=== PATIENT | male | born 1930 | race Caucasian/White ===

== ENCOUNTER 2018-03-19 22:28 | Inpatient (IN) | payer OTHER ==
[~2018-03-19] VITALS: Ht 175.3 cm; Wt 70.0 kg
[~2018-03-19 22:28] MED LIST: DICL75TA2 PO; TRIBENZOR
[2018-03-19] MEDS ORDERED: SODIUM CHLORIDE 0.9% 1L BAG IV* STA (23:47)
[2018-03-20] MEDS ORDERED: CEFEPIME 2GM/50 ML (PMX) 50 ML IVPB STA (01:21)
[2018-03-20] MEDS ORDERED: VANCOMYCIN 1 GM (PMX) 250 ML IVPB ONE (01:30)
--- NOTE | 2018-03-20 03:31 | ERD ---
ER Documentation Chief Complaint Chief Complaint DIARRHEA X'S 1 DAY, HYPOTENSIVE HPI This is an 87-year-old male comes in with diarrhea for the past day. Is a 5-6 episodes of diarrhea watery. 2-3 episodes of nonbilious vomiting as well. Complains of fever and body aches as well previously. Upon arrival to the ER he said fever and body aches have resolved but he just wanted to be checked out. He did see his primary care physician today and told that he had a viral syndrome. No sick contacts. No other current complaints. ROS All systems reviewed and are negative except as per history of present illness. Medications Home Meds Reported Medications Levothyroxine Sodium* (Levothyroxine Sodium*) 25 Mcg Tablet, 25 MCG PO BEFORE BREAKFAST, #30 TAB 03/20/18 Diclofenac Sodium* (Diclofenac Sodium*) 75 Mg Tablet.dr, 75 MG PO BID, #60 TAB 03/20/18 Tamsulosin Hcl* (Tamsulosin Hcl*) 0.4 Mg Cap.er.24h, 0.4 MG PO HS, CAP 03/20/18 Amlodipine Besylate* (Amlodipine Besylate*) 10 Mg Tablet, 10 MG PO DAILY, #30 TAB 03/20/18 Allergies Allergies: Coded Allergies: No Known Allergy (Unverified , 03/20/18) Physical Exam Vitals Vital Signs Date Temp Pulse Resp B/P (MAP) Pulse Ox O2 O2 Flow FiO2 Time Delivery Rate 03/20/18 98 16 107/55 99 Room Air 02:22 (72) 03/20/18 97.7 91 22 125/91 97 Room Air 00:36 (102) 03/19/18 97.5 104 18 85/53 (64) 93 23:07 Physical Exam Const: No acute distress Head: Atraumatic Eyes: Normal Conjunctiva ENT: Normal External Ears, Nose and Mouth. Neck: Full range of motion. No meningismus. Resp: Clear to auscultation bilaterally Cardio: Regular rate and rhythm, no murmurs Abd: Soft, non tender, non distended. Normal bowel sounds Skin: No petechiae or rashes Back: No midline or flank tenderness Ext: No cyanosis, or edema Neur: Awake and alert Psych: Normal Mood and Affect Result Diagram: 03/19/18 0000 03/19/18 0000 Results 24 hrs Laboratory Tests Test 03/19/18 00:00 03/20/18 00:17 White Blood Count 15.4 10^3/ul Red Blood Count 4.34 10^6/ul Hemoglobin 12.9 g/dl Hematocrit 40.3 % Mean Corpuscular Volume 92.9 fl Mean Corpuscular Hemoglobin 29.7 pg Mean Corpuscular Hemoglobin Concent 32.0 g/dl Red Cell Distribution Width 13.2 % Platelet Count 327 10^3/UL Mean Platelet Volume 9.3 fl Immature Granulocytes % 0.500 % Neutrophils % 81.5 % Lymphocytes % 6.4 % Monocytes % 10.4 % Eosinophils % 1.0 % Basophils % 0.2 % Nucleated Red Blood Cells % 0.0 /100WBC Immature Granulocytes # 0.070 10^3/ul Neutrophils # 12.6 10^3/ul Lymphocytes # 1.0 10^3/ul Monocytes # 1.6 10^3/ul Eosinophils # 0.2 10^3/ul Basophils # 0.0 10^3/ul Nucleated Red Blood Cells # 0.0 10^3/ul Prothrombin Time 13.2 Sec Prothrombin Time Ratio 1.0 INR International Normalized Ratio 0.99 Activated Partial Thromboplast Time 27.1 Sec Sodium Level 144 mmol/L Potassium Level 4.1 mmol/L Chloride Level 108 mmol/L Carbon Dioxide Level 17 mmol/L Anion Gap 19 Blood Urea Nitrogen 26 mg/dl Creatinine 2.00 mg/dl Est Glomerular Filtrat Rate mL/min mL/min Glucose Level 183 mg/dl Calcium Level 8.8 mg/dl Troponin I < 0.012 ng/ml POC Venous Lactate 2.1 mmol/L Current Medications Medications Dose Sig/Tabatha Start Time Status Last (Trade) Ordered Route PRN Stop Time Admin Dose Reason Admin Sodium 2,050 ml BOLUS OVER 2 03/19/18 DC 03/20/18 Chloride HOURS STAT 23:47 00:30 (NS) IV* 03/19/18 23:49 Cefepime HCl 50 ml @ ONCE STAT 03/20/18 DC 03/20/18 100 mls/hr IVPB 01:21 02:01 03/20/18 01:50 Vancomycin 250 ml @ ONCE ONCE 03/20/18 03/20/18 HCl 125 mls/hr IVPB 01:30 02:22 03/20/18 03:29 Procedures/MDM EKG: Rate/Rhythm: [Normal Sinus Rhythm] QRS, ST, T-waves: [No changes consistent w/ acute ischemia] Impression: [No evidence of ischemia or arrhythmia] Chest X-ray 1V Interpreted by me: Soft Tissue: No acute abnormalities Bones: No acute abnormalities Mediastinum/Cardiac Silhouette/Lungs: [No acute abnormalities] Patient's infectious symptoms have not stabilized and the patient is at risk of rapid decompensation. The patient will be admitted for careful hydration, antibiotic therapy, and infectious source control. Severe Sepsis Assessment: Infectious Source: Gastrointestinal End organ damage indicated by: [Lactate > 2.0 mmol/L Hypotension( SBP < 90 or >40 mmHG drop or MAP < 65) Severe Sepsis Managment: Blood Cultures X 2 before broad spectrum antibiotics initiated within 3 hours of recognition. 30 ml/kg NS bolus Completed Initial Lactate: 2.1 Repeat Lactate pending Critical Care: Time: 38 minutes, independent of any separately billable procedural time Treatments/Evaluations: Emergent fluid management, while maintaining close respiratory support. Immediate broad spectrum antibiotic therapy. Simultaneous assessment for possible sources in order to direct therapy. Consideration for invasive and chemical support to prevent respiratory or cardiac collapse. Septic Shock Assessment (1 hour post 30 ml/kg fluid bolus): Hypotension (SBP < 90 or 40 mmHg drop, MAP < 65): [No] Lactic acid > 4.0 [No] Perfusion Reassessment for Septic Shock: Temp 98.6, pulse 80, O2 sat of 97%, blood pressure 165/59 Heart Exam: [Tachycardic] Lung Exam: [No Crackles] Capillary Refill: [Delayed] Peripheral Pulses: [Radially present] Skin: [Mottled, pale] Accepting Care Team: Current data and ongoing care discussed. Time: 3:27 AM Primary Provider: Hospitalist Consulting: Deferred to inpatient team Outstanding Data: none Departure Diagnosis: Primary Impression: Sepsis Sepsis type: sepsis due to unspecified organism Qualified Codes: A41.9 - Sepsis, unspecified organism Condition: Serious SAADSONYAERINMili Mar 20, 2018 03:31
[2018-03-20] MEDS ORDERED: NACL 0.9% 3 ML SYG IV SCH (04:30)
[2018-03-20] MEDS ORDERED: ONDANSETRON 4 MG INJ IV PRN (04:30)
[2018-03-20] MEDS ORDERED: ACETAMINOPHEN 325 MG TAB PO PRN (04:30)
[2018-03-20 05:45] VITALS: BP 122/65; PULSE 78; RESP 21
[2018-03-20] MEDS: SOD CHLORIDE 0.9% 1,000 ML IV SCH ×3 (06:03→19:10)
[2018-03-20] MEDS: LEVOTHYROXINE 25 MCG TAB PO SCH (07:00)
[2018-03-20 08:00] VITALS: BP 129/70; PULSE 72; RESP 22
--- NOTE | 2018-03-20 08:08 | HP ---
Date/Time of Note Date/Time of Note DATE: 03/20/18 TIME: 08:05 Assessment/Plan VTE Prophylaxis Pharmacological prophylaxis: heparin Lines/Catheters IV C[facility]ter Type (from [facility] Peripheral IV Assessment/Plan Assessment/Plan 1. Gastroenteritis: Patient symptom of diarrhea, nausea/vomiting most likely secondary to viral gastroenteritis or colitis -Bowel rest with IV fluid -CT abdomen/pelvis -C. difficile and stool studies 2. Sepsis: As evidenced by leukocytosis and tachycardia: Likely secondary to above -We will consider antibiotic. -Follow-up stool studies including C. difficile, blood culture and urine culture 3. Presumed acute renal insufficiency: From a volume depletion from diarrhea -We will hydrate -Check urine electrolytes -Renal ultrasound and nephrology consult as needed -If no improvement, will place a Winn especially given history of BPH 4. Hypothyroidism: Continue Synthroid 5. BPH: Continue home med Result Diagram: 03/19/18 0000 03/19/18 0000 Results 24hrs Laboratory Tests Test 03/20/18 00:17 03/20/18 01:48 POC Venous Lactate 2.1 *H 1.5 HPI/ROS Admit Date/Time Admit Date/Time Mar 20, 2018 at 03:25 Hx of Present Illness This is an 87-year-old male with a history of hypertension, hypothyroidism, BPH who presented to ER complaining of multiple diarrhea X 2 days, runny nose/congestion X 4 days. He also reported nausea and nonbloody nonbilious vomiting. He said he saw his PCP yesterday and received unknown medication with improvement with his symptom. Denied fever/chills, chest pain or shortness of breath. He also denied abdominal pain. He describes diarrhea as watery and nonbloody. When presented to ER, he was afebrile. Initial WBC around 15,000. Creatinine 2, bicarb 17. Chest x-ray without acute findings. Influenza A and B negative. PMH/Family/Social Past Medical History Medications Current Medications Sodium Chloride 1,000 ml @ 75 mls/hr [id number] IV Last administered on 03/20/18at 06:03; Admin Dose 75 MLS/HR; Start 03/20/18 at 04:10; Stop 03/20/18 at 23:00 IV Flush (NS 3 ml) 3 ml PER PROTOCOL IV ; Start 03/20/18 at 04:30 Ondansetron HCl (Zofran Inj) 4 mg Q6H PRN IV NAUSEA AND/OR VOMITING; Start 03/05 08/21 at 04:30 Acetaminophen (Tylenol Tab) 650 mg Q6H PRN PO PAIN LEVEL 1-3 OR FEVER; Start 03/20/18 at 04:30 Heparin Sodium (Porcine) (Heparin (5000 Units/1ml)) 5,000 unit Q12 SC ; Start 03/20/18 at 09:00 Amlodipine Besylate (Norvasc) 10 mg DAILY PO ; Start 03/20/18 at 09:00 Diclofenac Sodium (Voltaren) 75 mg BID PO ; Start 03/20/18 at 09:00 Levothyroxine Sodium (Synthroid) 25 mcg BEFORE BREAKFAST PO ; Start 03/20/18 at 07:00 Tamsulosin HCl (Flomax) 0.4 mg HS PO ; Start 03/20/18 at 21:00 Levofloxacin/ Dextrose 100 ml @ 100 mls/hr DAILY IVPB ; Start 03/20/18 at 09:00 Coded Allergies: No Known Allergy (Verified , 05/07/12) Family History Significant Family History: no pertinent family hx Social History Alcohol Use: none Smoking Status: Never smoker Drug Use: none Exam/Review of Systems Vital Signs Vitals Vital Signs Date Temp Pulse Resp B/P (MAP) Pulse Ox O2 O2 Flow FiO2 Time Delivery Rate 03/20/18 98.1 72 22 129/70 99 08:00 (89) 03/20/18 Room Air 05:45 Exam Exam Constitutional: alert, oriented, well developed, other Head: normocephalic, atraumatic Respiratory: normal air movement Cardiovascular: regular rate and rhythm Gastrointestinal: soft Extremities: normal pulses PMH: see HPI PSH: see HPI . ERIN DIAMOND MD Mar 20, 2018 08:08
[2018-03-20] MEDS ORDERED: LEVOFLOXACIN 500MG/D5W (PMX) 100 ML IVPB SCH (09:00)
[2018-03-20] MEDS ORDERED: DICLOFENAC (EC) 75 MG TAB PO SCH (09:00)
[2018-03-20] MEDS: AMLODIPINE 10 MG TAB PO SCH (09:18)
[2018-03-20] MEDS: HEPARIN 5,000 UNIT/1 ML VIAL SC SCH ×2 (09:21→20:31)
--- NOTE | 2018-03-20 13:16 | PN ---
Date/Time of Note Date/Time of Note DATE: 03/20/18 TIME: 13:06 Assessment/Plan VTE Prophylaxis Risk score (from [facility])>0 risk: 4 SCD applied (from [facility]): No SCD contraindicated: other Pharmacological prophylaxis: heparin Lines/Catheters IV Catheter Type (from [facility]): Peripheral IV Assessment/Plan Hospital Course S: Patient seen by renal team today. Still having some diarrhea symptoms. O: VS - see below PE: Gen: No acute distress Head: Atraumatic Eyes: Normal Conjunctiva ENT: Normal External Ears, Nose and Mouth. Neck: Full range of motion. No meningismus. Resp: Clear to auscultation bilaterally Cardio: Regular rate and rhythm, no murmurs Abd: Soft, non tender, non distended. Normal bowel sounds Ext: No cyanosis, or edema Neur: No focal deficits Assessment/Plan: 87 M p/w: 1. Gastroenteritis: Patient symptom of diarrhea, nausea/vomiting most likely secondary to viral gastroenteritis or colitis. -For now continue IV fluid -Follow-up with the results of CT abdomen/pelvis -Follow-up the results of C. difficile and stool studies as well -We will also get PT and OT consults 2. Sepsis: As evidenced by leukocytosis and tachycardia: Likely secondary to above. -Again continue IV fluids -Follow-up stool studies including C. difficile, blood culture and urine culture 3. Presumed acute renal insufficiency: From a volume depletion from diarrhea. Appreciate renal consult recognition -Continue to hydrate, follow-up renal recommendations, hold NSAIDs -Check urine electrolytes -Renal ultrasound and nephrology consult as needed -If no improvement, consider Winn especially given history of BPH -we will try to discuss with renal team 4. Hypothyroidism: Continue Synthroid 5. BPH: Monitor, continue home med Result Diagram: 03/20/1833 03/20/18 0833 Results 24hrs Laboratory Tests Test 03/20/18 00:17 03/20/18 01:48 03/20/18 06:27 03/20/18 08:33 POC Venous Lactate 2.1 *H 1.5 Lactic Acid Level 1.2 White Blood Count 11.0 #H Red Blood Count 3.76 L Hemoglobin 11.2 L Hematocrit 35.3 L Mean Corpuscular 93.9 Volume Mean Corpuscular 29.8 Hemoglobin Mean Corpuscular 31.7 L Hemoglobin Concent Red Cell 13.3 Distribution Width Platelet Count 272 Mean Platelet Volume 9.2 Immature 0.500 H Granulocytes % Neutrophils % 76.3 Lymphocytes % 14.2 L Monocytes % 8.4 Eosinophils % 0.4 Basophils % 0.2 Nucleated Red Blood 0.0 Cells % Immature 0.050 H Granulocytes # Neutrophils # 8.4 H Lymphocytes # 1.6 Monocytes # 0.9 Eosinophils # 0.0 Basophils # 0.0 Nucleated Red Blood 0.0 Cells # Sodium Level 144 Potassium Level 4.3 Chloride Level 115 H Carbon Dioxide Level 20 L Anion Gap 9 # Blood Urea Nitrogen 26 H Creatinine 1.80 H Est Glomerular Filtrat Rate mL/min Glucose Level 99 # Calcium Level 8.2 L Total Bilirubin 0.2 Direct Bilirubin 0.00 Indirect Bilirubin 0.2 Aspartate Amino 22 Transf (AST/SGOT) Alanine 13 Aminotransferase (AL T/SGPT) Alkaline Phosphatase 80 Total Protein 7.3 Albumin 3.8 Globulin 3.50 H Albumin/Globulin 1.08 Ratio Test 03/20/18 09:25 Urine Color YELLOW Urine Clarity CLOUDY A Urine pH 5.0 Urine Specific 1.021 [place] Urine Ketones TRACE A Urine Nitrite NEGATIVE Urine Bilirubin NEGATIVE Urine Urobilinogen NEGATIVE Urine Leukocyte NEGATIVE Esterase Urine Microscopic 1 RBC Urine Microscopic 2 WBC Urine Mucus FEW A Urine Hemoglobin 1+ H Urine Random Sodium 93 H Urine Random 76.1 Potassium Urine Glucose NEGATIVE Urine Total Protein 1+ H Exam/Review of Systems Vital Signs Vitals Vital Signs Date Temp Pulse Resp B/P (MAP) Pulse Ox O2 O2 Flow FiO2 Time Delivery Rate 03/20/18 98.1 72 22 129/70 99 08:00 (89) 03/20/18 Room Air 05:45 Medications Medications Current Medications Sodium Chloride 1,000 ml @ 75 mls/hr [id number] IV Last administered on 03/20/18at 06:03; Admin Dose 75 MLS/HR; Start 03/20/18 at 04:10; Stop 03/20/18 at 23:00 IV Flush (NS 3 ml) 3 ml PER PROTOCOL IV ; Start 03/20/18 at 04:30 Ondansetron HCl (Zofran Inj) 4 mg Q6H PRN IV NAUSEA AND/OR VOMITING; Start 03/20/18 at 04:30 Acetaminophen (Tylenol Tab) 650 mg Q6H PRN PO PAIN LEVEL 1-3 OR FEVER; Start at 04:30 Heparin Sodium (Porcine) (Heparin (5000 Units/1ml)) 5,000 unit Q12 SC Last administered on 03/20/18at 09:21; Admin Dose 5,000 UNIT; Start 03/20/18 at 09:00 Amlodipine Besylate (Norvasc) 10 mg DAILY PO Last administered on 03/20/18at 09:18; Admin Dose 10 MG; Start 03/20/18 at 09:00 Levothyroxine Sodium (Synthroid) 25 mcg BEFORE BREAKFAST PO ; Start 03/20/18 at 07:00 Tamsulosin HCl (Flomax) 0.4 mg HS PO ; Start 03/20/18 at 21:00 Levofloxacin/ Dextrose 100 ml @ 100 mls/hr DAILY IVPB Last administered on 03/20/18at 09:18; Admin Dose 100 MLS/HR; Start 03/20/18 at 09:00 SATHYA DIXON Mar 20, 2018 13:16
--- NOTE | 2018-03-20 14:22 | CONS ---
DATE OF ADMISSION: 03/20/2018 DATE OF CONSULTATION: 03/20/2018 TYPE OF CONSULTATION: Renal consultative. Thank you very much for allowing me to evaluate this 87-year-old male, admitted with a history of alen rrhea of 1 day's duration with evidence of renal insufficiency. HISTORICAL EVENTS: As you well know, this patient, according to the patient's son had a cough and co ngestion for approximately 4 to 5 days with little mucus production. At that time, his appetite was modestly reduced. It was during the last 24 to 36 hours that he had modest diarrhea and intermittent vomiting. He is having 2 to 3 episodes of the same without evidence of GI bleeding. He had general ized body aching. He has had this longstanding. Close questioning today reveals no recent history o f dysuria, hematuria, flank pain, and the patient via his son interpreting indicated he had no diffic ulty voiding. He presently denies abdominal pain, chest pain, orthopnea, PND. PAST MEDICAL HISTORY INCLUDES: 1. Prostate disease. 2. Hypertension. 3. Arthritis. 4. Hypothyroidism. 5. Hypertension. MEDICATIONS: Prior to admission: 2. Levothyroxine 25 mcg per day. 3. Diclofenac 75 mg b.i.d. 4. Tamsulosin 0.4 mg per day. 5. Amlodipine 10 mg per day. PHYSICAL EXAMINATION: VITAL SIGNS: BP 129/70, pulse 72, respirations were 18. He was afebrile. NECK: No JVD, thyroid enlargement or adenopathy. LUNGS: Clear. HEART: Regular rhythm. No murmur. No third or fourth sound. ABDOMEN: Nontender. Liver and spleen were not palpable. No mass or tenderness were noted. EXTREMITIES: No edema. LABORATORY AND DIAGNOSTIC STUDIES: On admission, hematocrit 40.3. Presently 35.3 as of this morning , white count 15,400 on admission, 11,000 today. Platelets were normal. Chemistries: Creatinine wa s 2 on admission, presently 1.8. Electrolytes unrevealing except for CO2 of 20, BUN 26, glucose 183 on admission, 99 presently. Liver tests were normal. Urinalysis 1+ blood. Random urine sodium was 93. Protein was 1+. IMAGING STUDIES: Included chest x-ray that was unrevealing and CT scan revealed no inflammatory proc ess and no hydronephrosis. IMPRESSION: I am uncertain as to the patient's baseline renal function. At this point it seems to b e improving a bit. I suspect he has acute tubular necrosis as his blood pressure was less than 90% o n admission. Urinary sodium is elevated supporting the same as does a bland urinalysis and most impo rtantly he has no evidence of upper tract obstruction. A postvoid bladder ultrasound will be obtaine d. We will continue his present IV and follow with you. His diclofenac was discontinued as well. Dictated By: AMIRA POTTER MD MR/NTS Conf#: [id number] DID#: [id number] CC: ERIN DIAMOND MD;*EndCC*
[2018-03-20 19:53] VITALS: BP 144/76; PULSE 81; RESP 19
[2018-03-20] MEDS ORDERED: ZOLPIDEM 5 MG TAB PO PRN (20:00)
[2018-03-20] MEDS: TAMSULOSIN (SR) 0.4 MG CAP PO SCH (20:26)
[2018-03-21 02:00] VITALS: BP 138/69; PULSE 82; RESP 18
[2018-03-21] MEDS: LEVOTHYROXINE 25 MCG TAB PO SCH (06:15)
[2018-03-21 07:56] VITALS: BP 117/56; PULSE 88; RESP 17
--- NOTE | 2018-03-21 08:17 | CONS ---
Date/Time of Note Date/Time of Note DATE: 03/21/18 TIME: 08:15 Assessment/Plan Assessment/Plan Assessment/Plan 1. Suspect ARF sec to transient hypotension, ATN, await recovery to follow, labs pending 2. Gastroenteritis/URI resolved and related volume depletion. 3. Hx prostatism with post void residual <100cc. Result Diagram: 03/20/18 0833 03/20/18 0833 Results 24hrs Laboratory Tests Test 03/20/18 08:33 03/20/18 09:25 White Blood Count 11.0 #H Red Blood Count 3.76 L Hemoglobin 11.2 L Hematocrit 35.3 L Mean Corpuscular Volume 93.9 Mean Corpuscular Hemoglobin 29.8 Mean Corpuscular Hemoglobin Concent 31.7 L Red Cell Distribution Width 13.3 Platelet Count 272 Mean Platelet Volume 9.2 Immature Granulocytes % 0.500 H Neutrophils % 76.3 Lymphocytes % 14.2 L Monocytes % 8.4 Eosinophils % 0.4 Basophils % 0.2 Nucleated Red Blood Cells % 0.0 Immature Granulocytes # 0.050 H Neutrophils # 8.4 H Lymphocytes # 1.6 Monocytes # 0.9 Eosinophils # 0.0 Basophils # 0.0 Nucleated Red Blood Cells # 0.0 Sodium Level 144 Potassium Level 4.3 Chloride Level 115 H Carbon Dioxide Level 20 L Anion Gap 9 # Blood Urea Nitrogen 26 H Creatinine 1.80 H Est Glomerular Filtrat Rate mL/min Glucose Level 99 # Calcium Level 8.2 L Phosphorus Level 3.9 Magnesium Level 2.3 Total Bilirubin 0.2 Direct Bilirubin 0.00 Indirect Bilirubin 0.2 Aspartate Amino Transf (AST/SGOT) 22 Alanine Aminotransferase (ALT/SGPT) 13 Alkaline Phosphatase 80 Creatine Kinase 149 Total Protein 7.3 Albumin 3.8 Globulin 3.50 H Albumin/Globulin Ratio 1.08 Urine Color YELLOW Urine Clarity CLOUDY A Urine pH 5.0 Urine Specific [place] 1.021 Urine Ketones TRACE A Urine Nitrite NEGATIVE Urine Bilirubin NEGATIVE Urine Urobilinogen NEGATIVE Urine Leukocyte Esterase NEGATIVE Urine Microscopic RBC 1 Urine Microscopic WBC 2 Urine Mucus FEW A Urine Hemoglobin 1+ H Urine Random Creatinine 171.20 Urine Random Sodium 93 H Urine Random Potassium 76.1 Urine Protein/Creatinine Ratio 0.26 Urine Glucose NEGATIVE Urine Total Protein 46.0 H Consultation Date/Type/Reason Admit Date/Time Mar 20, 2018 at 03:25 Initial Consult Date Detailed Summary Respiratory: No cough, No shortness of breath Cardiovascular: No chest pain Gastrointestinal: no complaints Genitourinary: no complaints Exam/Review of Systems Vital Signs Vitals Vital Signs Date Temp Pulse Resp B/P (MAP) Pulse Ox O2 O2 Flow FiO2 Time Delivery Rate 03/21/18 98.2 88 17 117/56 97 07:56 (76) 03/20/18 Room Air 05:45 Intake and Output 03/20/18 03/20/18 03/21/18 1515:00 23:00 07:00 IntakeIntake Total 700 ml 1320 ml OutputOutput Total 650 ml 300 ml BalanceBalance 50 ml 1020 ml Exam Neck: No jvd Respiratory: clear to auscultation Cardiovascular: regular rate and rhythm Gastrointestinal: soft Extremities: No tenderness Medications Medications Current Medications IV Flush (NS 3 ml) 3 ml PER PROTOCOL IV ; Start 03/20/18 at 04:30 Ondansetron HCl (Zofran Inj) 4 mg Q6H PRN IV NAUSEA AND/OR VOMITING; Start at 04:30 Acetaminophen (Tylenol Tab) 650 mg Q6H PRN PO PAIN LEVEL 1-3 OR FEVER; Start 03/20/18 at 04:30 Heparin Sodium (Porcine) (Heparin (5000 Units/1ml)) 5,000 unit Q12 SC Last administered on 03/20/18at 20:31; Admin Dose 5,000 UNIT; Start 03/20/18 at 09:00 Amlodipine Besylate (Norvasc) 10 mg DAILY PO Last administered on 03/20/18at 09:18; Admin Dose 10 MG; Start 03/20/18 at 09:00 Levothyroxine Sodium (Synthroid) 25 mcg BEFORE BREAKFAST PO Last administered on 03/21/18at 06:15; Admin Dose 25 MCG; Start 03/20/18 at 07:00 Tamsulosin HCl (Flomax) 0.4 mg HS PO Last administered on 03/20/18 20:26; Admin Dose 0.4 MG; Start 03/20/18 at 21:00 Levofloxacin/ Dextrose 50 ml @ 100 mls/hr DAILY IVPB ; Start 03/21/18 at 09:00 Zolpidem Tartrate (Ambien) 10 mg ONCE PRN PO INSOMNIA Last administered on 03/20/18at 20:26; Admin Dose 10 MG; Start 03/20/18 at 20:00; Stop 03/21/18 at 19:59 AMIRA POTTER MD Mar 21, 2018 08:17
[2018-03-21] MEDS: AMLODIPINE 10 MG TAB PO SCH (08:54)
[2018-03-21] MEDS: LEVOFLOXACIN 250MG/D5W (PMX) 50 ML IVPB SCH (08:54)
[2018-03-21] MEDS: HEPARIN 5,000 UNIT/1 ML VIAL SC SCH ×2 (08:55→20:57)
--- NOTE | 2018-03-21 14:40 | PN ---
Date/Time of Note Date/Time of Note DATE: 03/21/18 TIME: 14:32 Assessment/Plan VTE Prophylaxis Risk score (from [facility] – [place], [place])>0 risk: 4 SCD applied (from [facility] – [place], [place]): No SCD contraindicated: other Pharmacological prophylaxis: heparin Lines/Catheters IV C[facility]ter Type (from [facility]): Peripheral IV Assessment/Plan Hospital Course S: Patient seen by renal team today. Still having some cough symptoms but o verall feels improved. Tolerating diet. C. difficile test was negative O: VS - see below PE: Gen: No acute distress Head: Atraumatic Eyes: Normal Conjunctiva ENT: Normal External Ears, Nose and Mouth. Neck: Full range of motion. No meningismus. Resp: Clear to auscultation bilaterally Cardio: Regular rate and rhythm, no murmurs Abd: Soft, non tender, non distended. Normal bowel sounds Ext: No cyanosis, or edema Neur: No focal deficits CT abdomen pelvis: IMPRESSION: 1. No CT evidence of acute inflammatory process or bowel obstruction. 2. Colonic diverticula without evidence of diverticulitis. 3. Mild interstitial fibrotic changes of the visualized lung bases. Assessment/Plan: 87 M p/w: 1. Gastroenteritis: Patient symptom of diarrhea, nausea/vomiting most likely secondary to viral gastroenteritis or colitis. -For now continue IV fluid -Continue PT and OT consults -For cough, guaifenesin and Cepastat as needed 2. Sepsis: As evidenced by leukocytosis and tachycardia: Resolving now, likely secondary to above. -Again continue IV fluids 3. Presumed acute renal insufficiency: Improving, creatinine still elevated overall, likely occurred from a volume depletion from diarrhea. Appreciate renal consult -Continue to hydrate, follow-up renal recommendations, hold NSAIDs 4. Hypothyroidism: Continue Synthroid 5. BPH: Monitor, continue home med Dispo: Likely home in 24 hours once GI symptoms and kidney function is further improved. Result Diagram: 03/21/18 0707 03/21/18 0707 Results 24hrs Laboratory Tests Test 03/21/18 07:07 White Blood Count 7.0 # Red Blood Count 3.77 L Hemoglobin 11.3 L Hematocrit 35.1 L Mean Corpuscular Volume 93.1 Mean Corpuscular Hemoglobin 30.0 Mean Corpuscular Hemoglobin Concent 32.2 Red Cell Distribution Width 13.5 Platelet Count 266 Mean Platelet Volume 9.5 Immature Granulocytes % 0.400 Neutrophils % 58.0 Lymphocytes % 25.3 Monocytes % 12.1 H Eosinophils % 3.9 Basophils % 0.3 Nucleated Red Blood Cells % 0.0 Immature Granulocytes # 0.030 Neutrophils # 4.0 Lymphocytes # 1.8 Monocytes # 0.8 Eosinophils # 0.3 Basophils # 0.0 Nucleated Red Blood Cells # 0.0 Sodium Level 140 Potassium Level 4.2 Chloride Level 113 H Carbon Dioxide Level 19 L Anion Gap 8 Blood Urea Nitrogen 21 H Creatinine 1.60 H Est Glomerular Filtrat Rate mL/min Glucose Level 89 Hemoglobin A1c 5.6 Calcium Level 8.2 L Phosphorus Level 3.4 Magnesium Level 2.0 Total Bilirubin 0.1 L Direct Bilirubin 0.00 Indirect Bilirubin 0.1 Aspartate Amino Transf (AST/SGOT) 30 Alanine Aminotransferase (ALT/SGPT) 12 L Alkaline Phosphatase 78 Total Protein 6.8 Albumin 3.5 Globulin 3.30 H Albumin/Globulin Ratio 1.06 Triglycerides Level 80 Cholesterol Level 124 LDL Cholesterol, Calculated 69 HDL Cholesterol 39 Cholesterol/HDL Ratio 3.1 Thyroid Stimulating Hormone (TSH) Pending Exam/Review of Systems Vital Signs Vitals Vital Signs Date Temp Pulse Resp B/P (MAP) Pulse Ox O2 O2 Flow FiO2 Time Delivery Rate 03/21/18 98.2 88 17 117/56 97 07:56 (76) 03/20/18 Room Air 05:45 Intake and Output 03/20/18 03/20/18 03/21/18 1515:00 23:00 07:00 IntakeIntake Total 700 ml 1320 ml OutputOutput Total 650 ml 300 ml BalanceBalance 50 ml 1020 ml Medications Medications Current Medications IV Flush (NS 3 ml) 3 ml PER PROTOCOL IV ; Start 03/20/18 at 04:30 Ondansetron HCl (Zofran Inj) 4 mg Q6H PRN IV NAUSEA AND/OR VOMITING; Start 03/20/18 at 04:30 Acetaminophen (Tylenol Tab) 650 mg Q6H PRN PO PAIN LEVEL 1-3 OR FEVER; Start 03/20/18 at 04:30 Heparin Sodium (Porcine) (Heparin (5000 Units/1ml)) 5,000 unit Q12 SC Last administered on 03/21/18at 08:55; Admin Dose 5,000 UNIT; Start 03/20/18 at 09:00 Amlodipine Besylate (Norvasc) 10 mg DAILY PO Last administered on 03/21/18 08:54; Admin Dose 10 MG; Start 03/20/18 at 09:00 Levothyroxine Sodium (Synthroid) 25 mcg BEFORE BREAKFAST PO Last administered on 03/21/18 06:15; Admin Dose 25 MCG; Start 03/20/18 at 07:00 Tamsulosin HCl (Flomax) 0.4 mg HS PO Last administered on 03/20/18 20:26; Admin Dose 0.4 MG; Start 03/20/18 at 21:00 Levofloxacin/ Dextrose 50 ml @ 100 mls/hr DAILY IVPB Last administered on 03/21/18 08:54; Admin Dose 100 MLS/HR; Start 03/21/18 at 09:00 Zolpidem Tartrate (Ambien) 10 mg ONCE PRN PO INSOMNIA Last administered on 03/20/18 20:26; Admin Dose 10 MG; Start 03/20/18 at 20:00; Stop 03/21/18 at 19:59 Phenol (Cepastat Lozenge) 1 lozenge Q1H PRN MT COUGH; Start 03/21/18 at 14:30; Status UNV Guaifenesin (Robitussin Liquid Cup) 200 mg Q4H PRN PO COUGH; Start 03/21/18 at 14:30; Status UNV SATHYA DIXON Mar 21, 2018 14:40
[2018-03-21 15:11] VITALS: BP 110/59; PULSE 87; RESP 18
[2018-03-21] MEDS: GUAIFENESIN 20 MG/ML 5ML CUP PO PRN (15:45)
[2018-03-21 20:00] VITALS: BP 115/56; PULSE 78; RESP 18
[2018-03-21] MEDS: TAMSULOSIN (SR) 0.4 MG CAP PO SCH (20:55)
[2018-03-22 02:00] VITALS: BP 123/63; PULSE 72; RESP 18
[2018-03-22] MEDS: CEPASTAT LOZENGE MT PRN ×2 (03:27→09:33)
[2018-03-22] MEDS: GUAIFENESIN 20 MG/ML 5ML CUP PO PRN (03:32)
[2018-03-22] MEDS: LEVOTHYROXINE 25 MCG TAB PO SCH (06:17)
[2018-03-22 08:00] VITALS: BP 103/55; PULSE 70; RESP 18
--- NOTE | 2018-03-22 08:32 | CONS ---
Date/Time of Note Date/Time of Note DATE: 03/22/18 TIME: 08:30 Assessment/Plan Assessment/Plan Assessment/Plan 1. ARF sec to hypotension (ATN) resolving, will reduce IV and no objection to dc per IM 2. Gastroenteritis and URI resolved. 3. Hypothyroidism on replacement 4. Prostatism without signif post void residual 5. Will gladly see again on request Result Diagram: 03/22/18 0619 03/22/18 0619 Results 24hrs Laboratory Tests Test 03/22/18 06:19 White Blood Count 7.4 Red Blood Count 3.65 L Hemoglobin 11.0 L Hematocrit 33.2 L Mean Corpuscular Volume 91.0 Mean Corpuscular Hemoglobin 30.1 Mean Corpuscular Hemoglobin Concent 33.1 Red Cell Distribution Width 13.0 Platelet Count 254 Mean Platelet Volume 9.0 Immature Granulocytes % 0.100 Neutrophils % 52.1 Lymphocytes % 31.5 Monocytes % 10.9 Eosinophils % 5.3 Basophils % 0.1 Nucleated Red Blood Cells % 0.0 Immature Granulocytes # 0.010 Neutrophils # 3.9 Lymphocytes # 2.3 Monocytes # 0.8 Eosinophils # 0.4 Basophils # 0.0 Nucleated Red Blood Cells # 0.0 Sodium Level 139 Potassium Level 4.0 Chloride Level 108 Carbon Dioxide Level 24 Anion Gap 7 Blood Urea Nitrogen 21 H Creatinine 1.46 H Est Glomerular Filtrat Rate mL/min Glucose Level 86 Calcium Level 8.1 L Phosphorus Level 3.3 Magnesium Level 1.9 Consultation Date/Type/Reason Admit Date/Time Mar 20, 2018 at 03:25 Initial Consult Date Detailed Summary ENT: other (mild head congestion) Respiratory: No cough Cardiovascular: No chest pain Gastrointestinal: no complaints Genitourinary: no complaints Exam/Review of Systems Vital Signs Vitals Vital Signs Date Temp Pulse Resp B/P (MAP) Pulse Ox O2 O2 Flow FiO2 Time Delivery Rate 03/22/18 98.6 70 18 103/55 97 Room Air 08:00 (71) Intake and Output 03/21/18 03/21/18 03/22/18 1515:00 23:00 07:00 IntakeIntake Total 760 ml 410 ml OutputOutput Total 150 ml 350 ml BalanceBalance 610 ml 60 ml Exam Neck: No jvd Respiratory: clear to auscultation Cardiovascular: regular rate and rhythm Gastrointestinal: soft Extremities: No edema Medications Medications Current Medications IV Flush (NS 3 ml) 3 ml PER PROTOCOL IV ; Start 03/20/18 at 04:30 Ondansetron HCl (Zofran Inj) 4 mg Q6H PRN IV NAUSEA AND/OR VOMITING; Start at 04:30 Acetaminophen (Tylenol Tab) 650 mg Q6H PRN PO PAIN LEVEL 1-3 OR FEVER; Start 03/20/18 at 04:30 Heparin Sodium (Porcine) (Heparin (5000 Units/1ml)) 5,000 unit Q12 SC Last administered on 03/21/18 20:57; Admin Dose 5,000 UNIT; Start 03/20/18 at 09:00 Amlodipine Besylate (Norvasc) 10 mg DAILY PO Last administered on 03/21/18 08:54; Admin Dose 10 MG; Start 03/20/18 at 09:00 Levothyroxine Sodium (Synthroid) 25 mcg BEFORE BREAKFAST PO Last administered on 03/22/18 06:17; Admin Dose 25 MCG; Start 03/20/18 at 07:00 Tamsulosin HCl (Flomax) 0.4 mg HS PO Last administered on 03/21/18 20:55; Admin Dose 0.4 MG; Start 03/20/18 at 21:00 Levofloxacin/ Dextrose 50 ml @ 100 mls/hr DAILY IVPB Last administered on 03/21/18 08:54; Admin Dose 100 MLS/HR; Start 03/21/18 at 09:00 Phenol (Cepastat Lozenge) 1 lozenge Q1H PRN MT COUGH Last administered on 03/22/18 03:27; Admin Dose 1 LOZENGE; Start 03/21/18 at 14:30 Guaifenesin (Robitussin Liquid Cup) 200 mg Q4H PRN PO COUGH Last administered on 03/22/18 03:32; Admin Dose 200 MG; Start 03/21/18 at 14:30 AMIRA POTTER MD Mar 22, 2018 08:32
[2018-03-22] MEDS: AMLODIPINE 10 MG TAB PO SCH (08:44)
[2018-03-22] MEDS: LEVOFLOXACIN 250MG/D5W (PMX) 50 ML IVPB SCH (08:45)
[2018-03-22] MEDS: HEPARIN 5,000 UNIT/1 ML VIAL SC SCH (09:25)
--- NOTE | 2018-03-22 09:39 | PDOCDIS ---
Discharge Instructions CONDITION [id number] Patient Condition: [id number] Stable HOME CARE INSTRUCTIONS: [id number] Diet Instructions: [id number] Regular ACTIVITY: [id number] Activity Restrictions: [id number] Slowly Increase Activity Rest between Activity Avoid heavy lifting FOLLOW UP/APPOINTMENTS Follow-up Plan Please take your medications as prescribed. Please see your doctor in the clinic in the next 1 week. SATHYA DIXON. Mar 22, 2018 09:39
[2018-03-22] MEDS ORDERED: LEVO25TA PO (09:43)
[2018-03-22] MEDS ORDERED: LEVO750T25 PO (09:43)
[2018-03-22] MEDS ORDERED: AMLO-218 PO (09:43)
[2018-03-22] MEDS ORDERED: GUAI-637 PO (09:43)
[2018-03-22] MEDS ORDERED: TAMS-14 PO (09:43)
--- NOTE | 2018-03-22 09:47 | DS ---
Date/Time of Note Date/Time of Note DATE: 03/22/18 TIME: 09:45 Discharge Summary Admission/Discharge Info Admit Date/Time Mar 20, 2018 at 03:25 Discharge Date/Time Discharge Diagnosis 1. Gastroenteritis: Resolving now. 2. Sepsis: Resolved as evidenced by leukocytosis and tachycardia: likely secondary to above. 3. acute renal insufficiency: Resolving now with IV fluids 4. Hypothyroidism: Continue Synthroid 5. BPH: Monitor, continue home med Patient Condition: Stable Procedures CT abdomen pelvis: IMPRESSION: 1. No CT evidence of acute inflammatory process or bowel obstruction. 2. Colonic diverticula without evidence of diverticulitis. 3. Mild interstitial fibrotic changes of the visualized lung bases. Hx of Present Illness 87-year-old male with a history of hypertension, hypothyroidism, BPH who presented to ER complaining of multiple diarrhea X 2 days, runny nose/congestion X 4 days. He also reported nausea and nonbloody nonbilious vomiting. He said he saw his PCP yesterday and received unknown medication with improvement with his symptom. Denied fever/chills, chest pain or shortness of breath. He also denied abdominal pain. He describes diarrhea as watery and nonbloody. When presented to ER, he was afebrile. Initial WBC around 15,000. Creatinine 2, bicarb 17. Chest x-ray without acute findings. Influenza A and B negative. Hospital Course The patient was admitted to medical surgical unit. Patient on IV fluids and a ntitussive medicines. Patient was seen by renal team, acute kidney injury improved, more importantly gastroenteritis symptoms started to resolve with IV fluid intake. C. difficile test was negative. Influenza a and B tests were negative as well. Patient worked with physical therapy and occupational therapy, was able to ambulate with assistance, tolerated diet. After getting cl earance from bi consultant teams, and with patient symptoms resolving now, patient will be discharged home today in improved condition. See below for full list of discharge medications. Home Meds Active Scripts Amlodipine Besylate* (Norvasc*) 10 Mg Tablet, 10 MG PO DAILY, #30 TAB 1 Refill Prov:RAHI,SATHYA S. 03/22/18 Tamsulosin Hcl* (Flomax*) 0.4 Mg Cap.er.24h, 0.4 MG PO DAILY, #30 CAP 1 Refill Prov:RAHI,SATHYA S. 03/22/18 Guaifenesin* (Robitussin*) 100 Mg/5 Ml Syrup, 200 MG PO Q4H PRN for COUGH, #1 BOTTLE 1 Refill Prov:SATHYA DIXON S. 03/22/18 Levofloxacin* (Levaquin*) 750 Mg Tablet, 750 MG PO DAILY for 5 Days, #5 TAB Prov:SATHYA DIXON S. 03/22/18 Levothyroxine Sodium* (Synthroid*) 25 Mcg Tablet, 25 MCG PO BEFORE BREAKFAST, #30 TAB 2 Refills Prov:SATHYA DIXON S. 03/22/18 Reported Medications [Tribenzor] No Conflict Check, 12.5 DAILY 05/07/12 Diclofenac Sodium* (Diclofenac Sodium*) 75 Mg Tablet.dr, 75 MG PO BID 05/07/12 Follow-up Plan Please take your medications as prescribed. Please see your doctor in the clinic in the next 1 week. Primary Care Provider Time spent on discharge: > 30 minutes Pending Labs Laboratory Tests Test 03/22/18 06:19 03/22/18 08:25 White Blood Count 7.4 10^3/ul (4.8-10.8) Red Blood Count 3.65 10^6/ul (4.70-6.10) Hemoglobin 11.0 g/dl (14.0-18.0) Hematocrit 33.2 % (42.0-52.0) Mean Corpuscular Volume 91.0 fl (82.0-101.0) Mean Corpuscular Hemoglobin 30.1 pg (29.0-33.0) Mean Corpuscular 33.1 g/dl (32.0-37.0) Hemoglobin Concent Red Cell Distribution Width 13.0 % (11.5-14.5) Platelet Count 254 10^3/UL (140-415) Mean Platelet Volume 9.0 fl (7.4-10.4) Immature Granulocytes % 0.100 % (0.001-0.429) Neutrophils % 52.1 % (39.0-77.0) Lymphocytes % 31.5 % (15.0-51.0) Monocytes % 10.9 % (0.0-11.0) Eosinophils % 5.3 % (0.0-7.0) Basophils % 0.1 % (0.0-2.0) Nucleated Red Blood Cells % 0.0 /100WBC (0.0-0.0) Immature Granulocytes # 0.010 10^3/ul (0.0-0.031) Neutrophils # 3.9 10^3/ul (1.6-7.5) Lymphocytes # 2.3 10^3/ul (0.8-2.9) Monocytes # 0.8 10^3/ul (0.3-0.9) Eosinophils # 0.4 10^3/ul (0.0-0.5) Basophils # 0.0 10^3/ul (0.0-0.1) Nucleated Red Blood Cells # 0.0 10^3/ul (0.0-0.0) Sodium Level 139 mmol/L (135-144) Potassium Level 4.0 mmol/L (3.5-5.1) Chloride Level 108 mmol/L (97-110) Carbon Dioxide Level 24 mmol/L (21-31) Anion Gap 7 (5-13) Blood Urea Nitrogen 21 mg/dl (7-20) Creatinine 1.46 mg/dl (0.61-1.24) Est Glomerular Filtrat Rate mL/min mL/min (>60) Glucose Level 86 mg/dl (70-220) Calcium Level 8.1 mg/dl (8.4-10.2) Phosphorus Level 3.3 mg/dl (2.5-4.9) Magnesium Level 1.9 mg/dl (1.7-2.5) Bedside Glucose 87 mg/dL (70-220) SATHYA DIXON Mar 22, 2018 09:47
[2018-04-14] MEDS ORDERED: LORA10TA3 PO (04:03)
[2018-04-14] MEDS ORDERED: IBUP-1561 PO (04:03)
== END 2018-03-22 13:05 | disposition home or self-care (01) | DRG 871 ==
LOC: E/R 22:28 → 5EC 03-20 03:25 → MERGE 03-20 03:25 → CANRESERV 03-20 04:33
PROVIDERS: ADMIT Internal Medicine; ATTEND Hospitalist
DX: A41.9 Sepsis, unspecified organism (principal); N17.0 Acute kidney failure with tubular necrosis; A08.4 Viral intestinal infection, unspecified; E03.9 Hypothyroidism, unspecified; N40.1 Benign prostatic hyperplasia with lower urinary tract symptoms; R33.8 Other retention of urine; I10 Essential (primary) hypertension; M19.90 Unspecified osteoarthritis, unspecified site; I95.9 Hypotension, unspecified
CPT/HCPCS: 36415; 71045; 74176; 80048; 80053; 80061; 81001; 81003; 82436; 82550; 82570; 82962; 83036; 83605; 83735; 84100; 84133; 84300; 84443; 84484; 85025; 85610; 85730; 87040; 87045; 87075; 87086; 87400; 93005; 96365; 96375; 97161; 97165; J0692; J1644; J1956; J3370; J7030